=== PATIENT | female | born 1990 ===

== ENCOUNTER 2020-08-11 06:44 | Outpatient (NON) | payer OTHER, SELFPAY ==
[2020-08-12 21:18] LABS: SARS-CoV-2 RNA PCR Negative
== END 2020-08-11 06:45 ==
LOC: ANHCOVIDDT 06:49
PROVIDERS: Visit Provider Nurse Practitioner Family
DX: R19.7 Diarrhea, unspecified (principal); Z20.828 Contact with and (suspected) exposure to other viral communicable diseases
CPT/HCPCS: 87635; C9803; U0003